=== PATIENT | female | born 1950 | race Caucasian/White ===

== ENCOUNTER 2017-08-11 08:09 | Emergency (ER) | payer OTHER, BC ==
[2017-08-11 08:15] VITALS: TEMP 98.5; BMI 26.1
[2017-08-11] MEDS ORDERED: ASPIRIN 81 MG CHEWABLE TABLETS PO ONE (08:41)
--- NOTE | 2017-08-11 08:50 | PDOC ---
History of Present Illness - General Chief Complaint: Back Pain Stated Complaint: back pain radiates to left upper abdomen Time Seen by Provider: 08/11/17 08:17 History Source: Patient Exam Limitations: No Limitations - History of Present Illness Initial Comments: 08/11/17 08:43 67-year-old female with history of anxiety, chronic intermittent back pains, high cholesterol presents with episode of left back pain that radiated to her left chest this morning. Patient was in her usual state of normal health, while getting dressed for work developed a sharp 5 out of 10 pain in her left back that radiated anteriorly to her left sternum, now with persistent 2 wet of 10 sternal discomfort. Some nausea but no lightheadedness or shortness of breath or palpitations or diaphoresis, pain is sharp and not pressure-like and nonradiating. Has had similar pain in her right back in the past, developed some anxiety after the pain, presents now for evaluation. At baseline, has unlimited exercise tolerance and had a normal stress test about 5 years ago. No complaint of cough, no recent travel or sick contacts or symptoms of DVT. No risk factors for DVT. Nonsmoker. Past History - Past Medical History Allergies/Adverse Reactions: Allergies Allergy/AdvReac Type Severity Reaction Status Date / Time No Known Allergies Allergy Verified 08/11/17 08:12 Home Medications: Ambulatory Orders Atorvastatin Ca [Lipitor] 20 mg PO DAILY 09/01/12 Paroxetine HCl [Paxil -] 10 mg PO DAILY 09/01/12 COPD: No Hypercholesterolemia: Yes Psychiatric Problems: Yes (depression,anxiety) - Surgical History Cholecystectomy: Yes - Suicide/Smoking/Psychosocial Hx Smoking Status: No Smoking History: Never smoked Number of Cigarettes Smoked Daily: 0 Information on smoking cessation initiated: No Hx Alcohol Use: No Drug/Substance Use Hx: No Substance Use Type: None Review of Systems - Review of Systems Constitutional: No: Chills, Fever Respiratory: No: Cough, Shortness of Breath Cardiac (ROS): Yes: Chest Pain. No: Edema, Lightheadedness, Palpitations, Syncope ABD/GI: Yes: Nausea. No: Diarrhea, Vomiting : No: Hematuria Musculoskeletal: Yes: Muscle Pain Psychiatric: Yes: Anxiety All Other Systems: Reviewed and Negative *Physical Exam - Vital Signs Last Vital Signs Temp Pulse Resp BP Pulse Ox 98.5 F 78 18 159/99 99 08/11/17 08:12 08/11/17 08:12 08/11/17 08:12 08/11/17 08:12 08/11/17 08:12 - Physical Exam Comments: 08/11/17 08:50 Vital signs within normal limits, blood pressure slightly elevated at 159/99. GENERAL: The patient is awake, alert, and fully oriented, slightly anxious but in no acute distress, speaking full sentences. HEAD: Normal with no signs of trauma. EYES: PERRL, EOMI, sclera anicteric, conjunctiva clear with no pallor. ENT: oropharynx clear without exudates. Moist mucous membranes. NECK: Normal range of motion, supple without lymphadenopathy, JVD, or masses. LUNGS: Breath sounds equal, clear to auscultation bilaterally. No wheeze/ crackles. HEART: Regular rate, normal S1 and S2 without murmur or rub. ABDOMEN: Soft/nontender/nondistended. BS wnl. No guarding or rebound. No palpable masses. No hepatosplenomegaly. EXTREMITIES: Some reproducible discomfort to the L trapezius muscle mid- scapular region. No sternal/chest ttp or rash. Normal range of motion, no edema. 2+ distal pulses. No cords, erythema, or tenderness. NEUROLOGICAL: Cranial nerves II through XII grossly intact. Normal speech, normal gait. PSYCH: Normal mood, normal affect. SKIN: Warm, Dry, no rashes or lesions noted. Heart Score/ECG Review - History History: Slightly suspicious - Electrocardiogram EKG: Normal - Age Age: >/= 65 - Risk Factors Based on the list above the patient has:: 1-2 risk factors - Troponin Troponin: </= normal limit - Score Heart Score - Total: 3 #1 ECG reviewed & interpreted by me at: 08:47 General ECG Interpretation: Sinus Rhythm, Normal Rate (67), Normal Intervals ( qtc 409), No acute ischemic changes (prominent S1 and Q3 unchanged from prior EKG) Compared to previous ECG there are: No significant change (09/28) ED Treatment Course - LABORATORY CBC & Chemistry Diagram: 08/11/17 08:16 08/11/17 08:16 - RADIOLOGY Radiology Studies Ordered: Category Date Time Status CHEST PA & LAT [RAD] Stat Radiology 08/11/17 08:41 Ordered Medical Decision Making - Medical Decision Making 08/11/17 08:52 67-year-old female presents with left back pain now radiating to the left chest , improving and without associated symptoms of dyspnea for palpitations. Presentation is atypical for ACS, clinically not consistent with PE and has no signs of DVT. ? musculoskeletal, r/o cardiac or lung etiology. labs including ddimer given low risk, ekg cxr, asa heart score 3, dispo accordingly 08/11/17 11:10 much improved after asa. feels well now with only slight positional back pain. no rash. chest pain has resolved. workup including trop/ddimer/cxr wnl. VS remained normal. given low clinical suspicion and negative prelim workup, stable for d/c and outpt f/u. understands return criteria, has pain meds at home. at bedside. *DC/Admit/Observation/Transfer Diagnosis at time of Disposition: Left-sided thoracic back pain Qualifiers: Chronicity: acute Qualified Code(s): M54.6 - Pain in thoracic spine - Discharge Dispostion Disposition: HOME Condition at time of disposition: Improved - Referrals - Patient Instructions Printed Discharge Instructions: DI for Thoracic Back Pain Additional Instructions: Activity as tolerated. Stay hydrated. Tylenol 1000 mg every 8 hours and/or ibuprofen 600 mg every 8 hours as needed for pain. Blood tests, an EKG, and a chest xray showed no acute abnormalities. Continue your medications as previously prescribed by your physician. You should follow up with your primary doctor as soon as possible regarding today's emergency department visit. Return to the emergency department for any new or concerning symptoms, particularly persistent or worsening pain, chest pain or difficulty breathing, fevers or chills, numbness or weakness, rash. - Post Discharge Activity
[2017-08-11] MEDS ORDERED: ASPIRIN 81 MG CHEWABLE TABLETS ONE (08:51)
[2017-08-11 09:19] LABS: INR 1.05 (0.82-1.09); PROTHROMBIN TIME (PATIENT) 11.7 SEC (10.2-13.0)
[2017-08-11 09:21] LABS: BASO % 0.6 % (0-2.0); EOS % 0.9 % (0-4.5); HEMATOCRIT 45.4 % (32.4-45.2); LYMPH % 39.1 % (8-40); MCHC 33.2 g/dl (32.0-36.0); MEAN CELL VOLUME 90.4 fl (80-96); MEAN PLT VOLUME 9.3 fl (7.5-11.1); MONO % 6.7 % (3.8-10.2); NEUT % 52.7 % (42.8-82.8); PLATELET COUNT 275 K/MM3 (134-434); RBC 5.02 M/mm3 (3.60-5.2); RDW 12.1 % (11.6-15.6)
[2017-08-11 09:24] LABS: ALBUMIN 4.1 g/dl (3.5-5.0); ALK PHOS 73 U/L (32-92); ANION GAP 8 (8-16); BILIRUBIN,TOTAL 1.5 mg/dl (0.2-1.0); BLOOD UREA NITROGEN 13 mg/dl (7-18); CALCIUM 9.8 mg/dl (8.4-10.2); CHLORIDE 106 mmol/L (98-107); CO2 27 mmol/L (22-28); CREATININE 0.7 mg/dl (0.6-1.3); GLUCOSE,RANDOM 110 mg/dl (74-106); POTASSIUM 4.1 mmol/L (3.5-5.1); SGOT/AST 23 U/L (10-42); SGPT/ALT 27 U/L (10-40); SODIUM 141 mmol/L (136-145); TOT PROT 6.8 g/dl (6.4-8.3)
[2017-08-11 12:05] VITALS: BP 134/61; PULSE 77
--- NOTE | 2017-08-12 14:25 | EKG ---
Test Reason : Blood Pressure : / mmHG Vent. Rate : 067 BPM Atrial Rate : 067 BPM P-R Int : 154 ms QRS Dur : 082 ms QT Int : 388 ms P-R-T Axes : 033 019 026 degrees QTc Int : 409 ms SINUS RHYTHM NONSPECIFIC T WAVE ABNORMALITY NO PREVIOUS ECGS AVAILABLE Confirmed by MIGUEL ARAUJO MD ([id number]) on 08/12/2017 2:25:06 PM Referred By: GAGE AGUILAR Confirmed By:MIGUEL ARAUJO MD
== END 2017-08-11 11:20 | disposition home or self-care (01) ==
LOC: FER 08:09
DX: M54.6 Pain in thoracic spine (principal); E78.00 Pure hypercholesterolemia, unspecified; F41.8 Other specified anxiety disorders
CPT/HCPCS: 36415; 71046-TC; 80053; 82550; 84484; 85025; 85379; 85610; 93005; 99283-25

== ENCOUNTER 2018-12-25 02:33 | Emergency (ER) | payer OTHER, BC ==
--- NOTE | 2018-12-25 02:39 | PDOC ---
History of Present Illness - General Chief Complaint: Chest Pain Stated Complaint: CHEST PAIN Time Seen by Provider: 12/25/18 02:39 History Source: Patient Exam Limitations: No Limitations - History of Present Illness Initial Comments: 12/25/18 03:01 Pt had CP that began at 9:30. Pain was beneath her breasts and lasted long. It dissipated a couple hrs later then returned along with pain in her jaw. Pt states that she has a hx of anxiety, but that the pain tonight started everything. Then she began to feel anxious a few hours later and was afraid to go to sleep. Pt has no fever or chills. She has had diarrhea x 2 days; she has a hx of IBS. She has no HTN and no DM. She is not overweight. She quit smoking 40 yrs ago and she only smoked 5 years total back then. Pt states that she has a ounger bro and older bro both have CAD and DC. Timing/Duration: 4-6 hours Severity: moderate Modifying Factors: improves with: eating Associated Symptoms: reports: chest pain, other (jaw pain) Aspirin Received prior to arrival: Yes: no aspirin today Past History - Travel Traveled outside of the country in the last 30 days: No Close contact w/someone who was outside of country & ill: No - Past Medical History Allergies/Adverse Reactions: Allergies Allergy/AdvReac Type Severity Reaction Status Date / Time No Known Allergies Allergy Verified 08/11/17 08:12 Home Medications: Ambulatory Orders Paroxetine HCl [Paxil -] 10 mg PO DAILY 09/01/12 Rosuvastatin Calcium [Crestor] 10 mg PO DAILY 12/25/18 COPD: No Hypercholesterolemia: Yes Psychiatric Problems: Yes (depression,anxiety) - Surgical History Cholecystectomy: Yes - Suicide/Smoking/Psychosocial Hx Smoking Status: No Smoking History: Never smoked Number of Cigarettes Smoked Daily: 0 Hx Alcohol Use: No Drug/Substance Use Hx: No Substance Use Type: None Review of Systems - Review of Systems Constitutional: Yes: Loss of Appetite, Malaise. No: Symptoms Reported, See HPI , Chills, Diaphoresis, Fever, Night Sweats, Weakness, Weight Stable, Unintentional Wgt. Loss, Unexplained wgt Loss, Other HEENTM: No: Symptoms Reported, See HPI, Eye Pain, Blurred Vision, Tearing, Recent change in vision, Double Vision, Cataracts, Ear Pain, Ocular Prothesis, Ear Discharge, Nose Pain, Nose Congestion, Tinnitus, Nose Bleeding, Hearing Loss , Throat Pain, Throat Swelling, Mouth Pain, Dental Problems, Difficulty Swallowing, Mouth Swelling, Other Respiratory: No: Symptoms reported, See HPI, Cough, Orthopnea, Shortness of Breath, SOB with Exertion, SOB at Rest, Stridor, Wheezing, Productive cough, Hemoptysis, Other Cardiac (ROS): Yes: Chest Pain. No: Symptoms Reported, See HPI, Edema, Irregular Heart Rate, Lightheadedness, Palpitations, Syncope, Chest Tightness, Other ABD/GI: Yes: Diarrhea, Nausea. No: Symptoms Reported, See HPI, Abdominal Distended, Abd. Pain w/ defecation, Blood Streaked Bowels, Constipated, Difficulty Swallowing, Poor Appetite, Poor Fluid Intake, Rectal Bleeding, Vomiting, Indigestion, Abdominal cramping, Tarry Stools, Other : No: Symptoms Reported, See HPI, Burning, Dysuria, Discharge, Frequency, Flank Pain, Hematuria, Incontinence, Pain, Urgency, Testicular Mass, Testicular Swelling, Lesions, Testicular Pain, Other Musculoskeletal: No: Symptoms Reported, See HPI, Back Pain, Gout, Joint Pain, Joint Swelling, Muscle Pain, Muscle Weakness, Neck Pain, Joint Stiffness, Other Integumentary: No: Symptoms Reported, See HPI, Bruising, Change in Color, Change in Hair/Nails, Dryness, Erythema, Flushing, Lesions, Lumps, Pallor, Pruritus, Rash, Sweating, Other Neurological: No: Symptoms reported, See HPI, Headache, Numbness, Paresthesia, Pre-Existing Deficit, Seizure, Tingling, Tremors, Weakness, Unsteady Gait, Ataxia, Dizziness, Other *Physical Exam - Physical Exam General Appearance: Yes: Nourished, Appropriately Dressed, Mild Distress HEENT: positive: EOMI, STALIN, Normal ENT Inspection, Normal Voice, Symmetrical, TMs Normal, Pharynx Normal Neck: positive: Trachea midline, Normal Thyroid, Supple Respiratory/Chest: positive: Lungs Clear, Normal Breath Sounds. negative: Respiratory Distress Cardiovascular: positive: Regular Rhythm, Regular Rate, S1, S2 Gastrointestinal/Abdominal: positive: Normal Bowel Sounds, Flat, Soft Musculoskeletal: positive: Normal Inspection. negative: CVA Tenderness Extremity: positive: Normal Capillary Refill, Normal Inspection, Normal Range of Motion, Pelvis Stable. 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 Chem and card enzymes are still pending 12/25/18 04:20 CXR pending. Pt treated with asa as well as maalox. I am not particularly suspicious of DC/ CAD given patient's presentation as well as her unchanged EKG and her hx of not being able to eat a full normal meal for the past week. Pt will still require 1 or 2 cardiac enzymes. We will reevaluate her once the first blood test returns. 12/25/18 06:15 Labs are normal. Pt feels fine. EKG unchanged. CXR normal; CPK low and Trop negative. Pt reports that she has not eaten a decent meal in days. This is atypical CP. She will be discharged home. *DC/Admit/Observation/Transfer Diagnosis at time of Disposition: Atypical chest pain, Reflux esophagitis - Discharge Dispostion Disposition: HOME Condition at time of disposition: Improved Decision to Admit order: No - Referrals Referrals: Hamzah Turk MD [Primary Care Provider] - - Patient Instructions Printed Discharge Instructions: Eating a Diet Rich in Fruits and Vegetables, The Mediterranean Diet and Good Health, DI for Atypical Chest Pain - Post Discharge Activity
[2018-12-25 02:49] VITALS: BP 155/86; PULSE 96; TEMP 98.2; BMI 26.6
[2018-12-25] MEDS ORDERED: ASPIRIN 81 MG CHEWABLE TABLETS PO ONE (02:57)
[2018-12-25] MEDS ORDERED: MAG HYDROX/AL HYDROX/SIMETH 30 ML UNIT-DOSE CUP PO ONE (02:57)
[2018-12-25] MEDS ORDERED: ASPIRIN 81 MG CHEWABLE TABLETS ONE (03:00)
[2018-12-25] MEDS ORDERED: MAG HYDROX/AL HYDROX/SIMETH 30 ML UNIT-DOSE CUP ONE (03:00)
[2018-12-25 03:47] LABS: BASO % 0.7 % (0-2.0); EOS % 4.1 % (0-4.5); HEMATOCRIT 41.8 % (32.4-45.2); HEMOGLOBIN 14.4 GM/dL (10.7-15.3); LYMPH % 37.7 % (8-40); MCH 30.1 pg (25.7-33.7); MCHC 34.3 g/dl (32.0-36.0); MEAN CELL VOLUME 87.6 fl (80-96); MEAN PLT VOLUME 8.6 fl (7.5-11.1); MONO % 5.1 % (3.8-10.2); NEUT % 52.4 % (42.8-82.8); RBC 4.78 M/mm3 (3.60-5.2); RDW 12.9 % (11.6-15.6)
[2018-12-25 04:25] LABS: ALBUMIN 3.6 g/dl (3.4-5.0); BILIRUBIN,TOTAL 1.3 mg/dL (0.2-1); BLOOD UREA NITROGEN 9.6 mg/dL (7-18); CREATININE 0.8 mg/dL (0.55-1.3); POTASSIUM 3.5 mmol/L (3.5-5.1); TOT PROT 7.3 g/dl (6.4-8.2)
[2018-12-25 07:13] LABS: PLATELET COUNT 323 K/MM3 (134-434); PLATELET ESTIMATE ADEQUATE
--- NOTE | 2018-12-25 16:57 | EKG ---
Test Reason : Blood Pressure : / mmHG Vent. Rate : 092 BPM Atrial Rate : 092 BPM P-R Int : 158 ms QRS Dur : 080 ms QT Int : 374 ms P-R-T Axes : 037 036 -13 degrees QTc Int : 462 ms NORMAL SINUS RHYTHM INFERIOR INFARCT (CITED ON OR BEFORE 25-DEC-2018) CANNOT RULE OUT ANTERIOR INFARCT , AGE UNDETERMINED ABNORMAL ECG WHEN COMPARED WITH ECG OF 11-AUG-2017 08:47, INVERTED T WAVES HAVE REPLACED NONSPECIFIC T WAVE ABNORMALITY IN INFERIOR LEADS NONSPECIFIC T WAVE ABNORMALITY NO LONGER EVIDENT IN ANTERIOR LEADS QT HAS LENGTHENED Confirmed by VI GONZALEZ, LAKSHMI ([id number]) on 12/25/2018 4:57:12 PM Referred By: MD KEENAN Confirmed By:LAKSHMI LEBRON MD
== END 2018-12-25 05:23 | disposition home or self-care (01) ==
LOC: FER 02:33
DX: R07.89 Other chest pain (principal); K21.0 Gastro-esophageal reflux disease with esophagitis; E78.00 Pure hypercholesterolemia, unspecified; F41.8 Other specified anxiety disorders
CPT/HCPCS: 36415; 71046-TC-FY; 80053; 82550; 84484; 85025; 93005; 99282-25

== ENCOUNTER 2020-02-25 21:23 | Emergency (ER) | payer OTHER, BC ==
[2020-02-25 21:36] VITALS: TEMP 98.2; BMI 26.3
[2020-02-25] MEDS ORDERED: ALPRAZolam 1 MG TABLET PO PRN (21:39)
[2020-02-25] MEDS ORDERED: ALPRAZolam 0.25 MG TABLET ONE (21:41)
[2020-02-25 22:03] LABS: BASO % 0.7 % (0-2.0); EOS % 0.2 % (0-4.5); HEMATOCRIT 41.5 % (32.4-45.2); HEMOGLOBIN 14.1 GM/dl (10.7-15.3); MCH 30.8 pg (25.7-33.7); MCHC 33.8 g/dl (32.0-36.0); MEAN CELL VOLUME 90.9 fl (80-96); MEAN PLT VOLUME 8.9 fl (7.5-11.1); MONO % 6.8 % (3.8-10.2); NEUT % 69.3 % (42.8-82.8); PLATELET COUNT 255 K/MM3 (134-434); RBC 4.57 M/mm3 (3.60-5.2); WHITE BLOOD COUNT 11.4 K/mm3 (4.0-10.8)
[2020-02-25 22:13] LABS: ALBUMIN 4.1 g/dl (3.4-5.0); BILIRUBIN,TOTAL 1.6 mg/dl (0.2-1); CALCIUM 9.1 mg/dl (8.5-10); CREATININE 0.6 mg/dl (0.55-1.3); POTASSIUM 3.8 mmol/L (3.5-5.1)
--- NOTE | 2020-02-25 22:20 | PDOC ---
Documentation entered by Carlota Landry SCRIBE, acting as scribe for Srinath Madera MD. Srinath Madera MD: This documentation has been prepared by the leeroyibe, Carlota Landry SCRIBE, under my direction and personally reviewed by me in its entirety. I confirm that the documentation accurately reflects all work, treatment, procedures, and medical decision making performed by me. History of Present Illness - General Chief Complaint: Chest Pain Stated Complaint: GERD/SOB History Source: Patient Exam Limitations: No Limitations - History of Present Illness Initial Comments: 02/25/20 21:45 The patient is a 69-year-old female who presents to the emergency department with epigastric and midsternal pain. The patient presents with pressure like epigastric and midsternal pain since 9:30 am today which has decreased in severity since onset, however secondary to new onset shortness of breath, the patient was concerned and nervous. The patient reports prior similar episodes of acid reflux, however, she never had shortness of breath with those episodes. The patient reports associated symptoms of nausea (which has resolved) and pain with deep breathing. Denies any nausea currently. The patient reports she took Mylanta earlier today and a baby ASA at 4:00 pm, without relief. The patient reports she normally sleeps on her left side secondary to a history of acid reflux, however, last night she slept on her right side and had a late-night snack, which she states might be attributing to the symptoms. Denies taking any medication for GERD. Denies fever, chills, vomiting, diarrhea, abdominal pain, or diaphoresis. The patient reports she had an unremarkable stress test last year. PAST MEDICAL HISTORY: HLD, anxiety (Lexipro) and IBS. Denies personal history of cardiac diseases. PAST SURGICAL HISTORY: Cholecystectomy. Denies a history of cardiac caths. FAMILY HISTORY: The patient reports her brothers both had an IL. SOCIAL HISTORY: Pt lives with family and is retired. MEDICATIONS: reviewed ALLERGIES: As per nursing notes PCP: Dr. Centeno. Review of system: General: No fevers or chills, no weakness, no weight loss HEENT: No change in vision. No sore throat. No ear pain CardioVascular: +chest pain with shortness of breath Respiratory: No cough, or wheezing. Gastrointestinal: +epigastric pain. +nausea, No vomiting, diarrhea or constipation, No rectal bleeding Genitourinary: No dysuria, hematuria, or frequency Musculoskeletal: No joint or muscle pain or swelling Neurologic: No headache, vertigo, dizziness or loss of consciousness Psychiatric: +anxious. nor depression Skin: No rashes or easy bruising Endocrine: no increased thirst or abnormal weight change Allergic: no skin or latex allergy All other systems reviewed and normal Physical exam: General: Well-nourished well-developed individual, no acute distress HEENT: Throat: Normal, tonsils normal, no erythema or exudate Neck: Supple, no meningeal signs, no lymphadenopathy Eyes :Pupils equal reactive and round, extraocular motion intact Chest: +some reproducible pain on palpation of the lower sternal area. Cardiac: S1-S2 normal, regular rate and rhythm, no murmurs rubs or gallops Respiratory: Lungs clear to auscultation bilateral Abdomen: Soft, nondistended, normal bowel sounds, nontender to palpation diffusely Extremities: Warm, dry, no cyanosis, clubbing, or edema Skin: No rashes Neuro: Alert and oriented x3, nonfocal exam, grossly intact, normal gait Psych: Normal mood and affect 02/25/20 22:20 Assessment and plan: This is a 69-year-old female who comes in complaining of substernal chest pain/reflux and shortness of breath associated with some nausea today. Patient has had the pain pretty much all day. Patient took some Maalox and an aspirin for it without relief. Patient otherwise has a strong family history of coronary artery disease. Has history of high cholesterol denies history of hypertension but is noted to be quite hypertensive here in the ED. Patient is also very anxious. Work-up was initiated including EKG which shows a mild sinus tachycardia, and abnormal EKG but no significant change from prior EKG of approximately a year ago. Patient states she did have a stress test approximately 1 year ago also. Work-up initiated Chest x-ray shows no acute pathology 02/25/20 22:[address] 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) Past History - Medical History Allergies/Adverse Reactions: Allergies Allergy/AdvReac Type Severity Reaction Status Date / Time No Known Allergies Allergy Verified 08/11/17 08:12 Home Medications: Ambulatory Orders Rosuvastatin Calcium [Crestor] 10 mg PO DAILY 12/25/18 Escitalopram Oxalate [Lexapro -] 10 mg PO DAILY 02/25/20 COPD: No Hypercholesterolemia: Yes Psychiatric Problems: Yes (depression,anxiety) - Surgical History Cholecystectomy: Yes - Psycho-Social/Smoking History Smoking Status: No Smoking History: Never smoked Number of Cigarettes Smoked Daily: 0 *Physical Exam - Vital Signs Last Vital Signs Temp Pulse Resp BP Pulse Ox 98.2 F 90 18 150/74 98 02/25/20 21:25 02/26/20 00:30 02/25/20 21:25 02/26/20 00:30 02/25/20 21:25 ED Treatment Course - LABORATORY CBC & Chemistry Diagram: 02/25/20 21:50 02/25/20 21:50 - ADDITIONAL ORDERS Additional order review: 02/25/20 21:50 RBC 4.57 MCV 90.9 MCHC 33.8 RDW 12.0 MPV 8.9 Neutrophils % 69.3 Lymphocytes % 23.0 Monocytes % 6.8 Eosinophils % 0.2 Basophils % 0.7 - RADIOLOGY Radiology Studies Ordered: Category Date Time Status CHEST X-RAY PORTABLE* [RAD] Stat Radiology 02/25/20 21:41 Completed - Medications Given in the ED: ED Medications Discontinued Medications Generic Name Dose Route Start Last Admin Trade Name Freq PRN Reason Stop Dose Admin Alprazolam 0.5 mg 02/25/20 21:39 02/25/20 21:43 Xanax PO 0.5 mg ONCE PRN Administration ANXIETY Discharge - Discharge Information Problems reviewed: Yes Clinical Impression/Diagnosis: Atypical chest pain Condition: Stable Disposition: HOME - Admission No - Follow up/Referral Referrals: Andrade Centeno MD [Primary Care Provider] - - Patient Discharge Instructions Additional Instructions: It is important you call your drying rack changer and follow-up with your drying rack changer this week. Continue all your medications. Return to the emergency department immediately with ANY new, persistent or worsening symptoms. Continue any medications as previously prescribed by your physician. You should follow up with your primary doctor as soon as possible regarding today's emergency department visit. . Please make sure your doctor reviews the results of your emergency evaluation. Thank you for coming to the Emergency Department today for your care. It was a pleasure to see you today. Please note that your evaluation is INCOMPLETE until you follow-up with your doctor. - Post Discharge Activity
[2020-02-26 01:49] VITALS: BP 150/74; PULSE 90
--- NOTE | 2020-02-26 08:52 | EKG ---
Test Reason : Blood Pressure : / mmHG Vent. Rate : 110 BPM Atrial Rate : 110 BPM P-R Int : 158 ms QRS Dur : 080 ms QT Int : 334 ms P-R-T Axes : 060 038 -07 degrees QTc Int : 452 ms SINUS TACHYCARDIA INFERIOR INFARCT (CITED ON OR BEFORE 25-DEC-2018) ABNORMAL ECG WHEN COMPARED WITH ECG OF 25-DEC-2018 02:45, T WAVE INVERSION NOW EVIDENT IN ANTERIOR LEADS Confirmed by Saba Cooper ([id number]) on 02/26/2020 8:52:40 AM Referred By: Confirmed By:Saba Cooper
--- NOTE | 2020-02-26 08:52 | EKG ---
Test Reason : Blood Pressure : / mmHG Vent. Rate : 090 BPM Atrial Rate : 090 BPM P-R Int : 174 ms QRS Dur : 076 ms QT Int : 378 ms P-R-T Axes : 037 030 008 degrees QTc Int : 462 ms NORMAL SINUS RHYTHM POSSIBLE INFERIOR INFARCT (CITED ON OR BEFORE 25-DEC-2018) ABNORMAL ECG WHEN COMPARED WITH ECG OF 25-FEB-2020 21:31, NO SIGNIFICANT CHANGE WAS FOUND Confirmed by Saba Cooper ([id number]) on 02/26/2020 8:51:54 AM Referred By: MD KEN Confirmed By:Saba Cooper
== END 2020-02-26 01:53 | disposition home or self-care (01) ==
LOC: FER 21:23
DX: R07.89 Other chest pain (principal)
CPT/HCPCS: 36415; 71045-TC-FY; 80053; 82550; 84484; 85025; 93005; 99285-25

== ENCOUNTER 2021-11-18 02:06 | Emergency (ER) | payer OTHER, BC ==
[2021-11-18 02:14] VITALS: BP 155/75; PULSE 72; TEMP 98.6; BMI 27.4
== END 2021-11-18 04:06 | disposition home or self-care (01) ==
LOC: FER 02:06
DX: S00.83XA Contusion of other part of head, initial encounter (principal); W01.198A Fall on same level from slipping, tripping and stumbling with subsequent striking against other object, initial encounter
CPT/HCPCS: 70450-TC; 70486-TC; 99284-25

== ENCOUNTER 2024-02-29 12:29 | Emergency (ER) | payer OTHER, BC ==
[2024-02-29 12:42] VITALS: TEMP 100.8; BMI 25.9
[2024-02-29] MEDS: ONDANSETRON 4 MG/2 ML VIAL IVPUSH ONE (13:20)
[2024-02-29] MEDS: SODIUM CHLORIDE 0.9% 500 ML INFUS.BAG IV ONE (13:20)
[2024-02-29 13:41] LABS: HEMOGLOBIN 14.1 G/dL (10.7-15.3); MCH 29.5 pg (25.7-33.7); MCHC 32.7 g/dl (32.0-36.0); MEAN CELL VOLUME 89.9 fl (80-96); MEAN PLT VOLUME 8.7 fl (7.5-11.1); RBC 4.78 10^6/uL (3.60-5.2); RDW 13.5 % (11.6-15.6); WHITE BLOOD COUNT 7.7 10^3/uL (4.0-10.8)
[2024-02-29 14:03] LABS: ALBUMIN 4.3 g/dl (3.4-5.0); ALK PHOS 79 U/L (45-117); ANION GAP 8 mmol/L (4-13); CALCIUM 9.3 mg/dl (8.5-10.1); CHLORIDE 101 mmol/L (98-107); CO2 26 mmol/L (21-32); CREATININE 0.8 mg/dl (0.6-1.3); GLUCOSE,RANDOM 138 mg/dl (74-106); POTASSIUM 4.1 mmol/L (3.5-5.1); SGOT/AST 57 U/L (15-37); SGPT/ALT 51 U/L (7-52); SODIUM 135 mmol/L (136-145); TOT PROT 6.7 g/dl (6.4-8.2)
[2024-02-29 14:14] LABS: EPITHELIAL CELLS 0-5 /hpf
[2024-02-29 14:46] VITALS: BP 118/54; PULSE 87; RESP 16
[2024-02-29 15:55] LABS: PLATELET ESTIMATE ADEQUATE
[2024-03-03 15:15] LABS: E.chaff HME IgG Negative (Neg:<1:64)
== END 2024-02-29 14:30 | disposition home or self-care (01) ==
LOC: FER 12:29
PROC: 3E033GC Introduction of Other Therapeutic Substance into Peripheral Vein, Percutaneous Approach (ICD-10-PCS; principal; 2024-02-29)
DX: R50.9 Fever, unspecified (principal); M79.10 Myalgia, unspecified site; R11.0 Nausea; M54.2 Cervicalgia; Z20.822 Contact with and (suspected) exposure to COVID-19
CPT/HCPCS: 0241U-QW; 36415; 71046-TC-FY; 80053; 81003; 81015; 82550; 82930; 85027; 86618; 86666; 87086; 93005; 99285-25